=== PATIENT | female | born 1965 | race Caucasian/White ===

== ENCOUNTER 2024-04-16 00:31 | Inpatient (IN) | payer OTHER ==
[~2024-04-16] VITALS: Ht 149.9 cm; Wt 72.6 kg
[2024-04-16 00:33] VITALS: BP 130/80; PULSE 78; RESP 16; TEMP 97.5; O2SAT 98
[2024-04-16 02:29] LABS: BASOPHILS % (AUTO) 0.6 % (0.0-2.0); EOSINOPHILS # (AUTO) 0.2 K/uL (0-0.4); HEMATOCRIT 35.6 % (36-48); HEMOGLOBIN 12.3 g/dL (12.0-16.0); LYMPHOCYTES # (AUTO) 1.8 K/uL (2.5-16.5); LYMPHOCYTES % (AUTO) 33.5 % (20.5-51.1); MEAN CORPUSCULAR HEMOGLOBIN 30 pg (27-31); MEAN CORPUSCULAR HGB CONC 34 g/dL (33-37); MONOCYTES # (AUTO) 0.4 K/uL (0.8-1.0); MONOCYTES % (AUTO) 7.9 % (1.7-9.3); NEUTROPHILS # (AUTO) 2.9 K/uL (1.8-7.7); PLATELET COUNT (AUTO) 176 K/uL (140-450); RED BLOOD CELL COUNT(AUTO) 4.14 MIL/uL (4.20-5.40); RED CELL DISTRIBUTION WIDTH 14.1 % (11.6-13.7); WHITE BLOOD COUNT (AUTO) 5.3 K/uL (4.8-10.8)
[2024-04-16 02:37] LABS: ANION GAP 12.6 (8-16); CALCIUM 9.5 mg/dL (8.5-10.1); CARBON DIOXIDE 26.6 mmol/L (21-32); CREATININE 0.8 mg/dL (0.6-1.3); POTASSIUM 4.2 mmol/L (3.5-5.1)
[2024-04-16 03:17] LABS: APPEARANCE,URINE CLEAR (CLEAR); BILIRUBIN,URINE NEGATIVE (NEGATIVE); BLOOD, URINE NEGATIVE (NEGATIVE); COLOR,URINE YELLOW (YELLOW); LEUKOCYTE ESTERASE ,URINE NEGATIVE (NEGATIVE); NITRITE, URINE NEGATIVE (NEGATIVE); PROTEIN,URINE NEGATIVE (NEGATIVE); UGLUCOSE 3+ (NEGATIVE); UROBILINOGEN,URINE 0.2 EU/dL (0.2 - 1)
[2024-04-16 03:26] LABS: BACTERIA,URINE 3+ /HPF (None Seen); RBC,URINE 0-5 /HPF (0-5); SQUAMOUS EPITHELIAL CELL,UR 0-3 (FEW) /LPF (0-3 (FEW)); WBC,URINE 0-5 /HPF (0-5)
[2024-04-16] MEDS ORDERED: LORazepam 2 MG/ML VIAL ONE (03:48)
[2024-04-16] MEDS: LORazepam 2 MG/ML VIAL IM ONE (03:52)
[2024-04-16] MEDS: HALOPERIDOL IM 5 MG/ML VIAL IM ONE (03:52)
[2024-04-16] MEDS ORDERED: cefTRIAXone 1,000 MG VIAL ONE ×3 (04:14→08:02)
[2024-04-16] MEDS: NACL 0.9% 1,000 ML IV ONE (04:33)
[2024-04-16] MEDS ORDERED: DOCU-61 PO (06:28)
[2024-04-16] MEDS ORDERED: PRO1 PO (06:28)
[2024-04-16] MEDS ORDERED: BENZ-315 PO (06:28)
[2024-04-16] MEDS ORDERED: FURO-570 PO (06:28)
[2024-04-16] MEDS ORDERED: DIVA250T PO (06:28)
[2024-04-16] MEDS ORDERED: AMMO12LO TP (06:28)
[2024-04-16] MEDS ORDERED: TRAZ-471 PO (06:29)
[2024-04-16] MEDS ORDERED: POTA8TAB19 PO (06:29)
[2024-04-16] MEDS ORDERED: EMPA25TA PO (06:29)
[2024-04-16] MEDS ORDERED: LOSA-272 PO (06:29)
[2024-04-16] MEDS ORDERED: NICO21TD TP (06:29)
[2024-04-16] MEDS ORDERED: MELA5TAB68 PO (06:29)
[2024-04-16] MEDS ORDERED: METF-1139 PO (06:29)
[2024-04-16] MEDS ORDERED: GLIP10TE PO (06:29)
[2024-04-16 08:15] VITALS: PULSE 61; RESP 20; O2SAT 95
[2024-04-16] MEDS ORDERED: DEXTROSE 50% 50 ML SYR IVP PRN (10:30)
[2024-04-16] MEDS: BLOOD GLUCOSE MONITORING 1 DEV DEV FS SCH (11:40)
[2024-04-16] MEDS: BENZTROPINE 1 MG TAB PO SCH (11:41)
[2024-04-16] MEDS: amLODIPine 5 MG TAB PO SCH (11:42)
[2024-04-16] MEDS: QUEtiapine FUMARATE 25 MG TAB PO SCH (11:42)
[2024-04-16 16:00] VITALS: BP 139/80; PULSE 62; RESP 18; TEMP 98.4; O2SAT 100
[2024-04-16] MEDS: INSULIN LISPRO SLIDING SCALE 100 UNITS/ML VIAL SUBQ PRN (17:08)
[2024-04-16 20:00] VITALS: BP 150/85; PULSE 68; RESP 18; TEMP 96.5; O2SAT 100
[2024-04-16] MEDS: DOCUSATE SODIUM 100 MG GELCAP PO SCH (20:27)
[2024-04-16] MEDS: LORazepam 1 MG TAB PO PRN (21:13)
[2024-04-16 22:47] VITALS: PULSE 68; RESP 18; O2SAT 100
[2024-04-17 08:00] VITALS: BP 150/96; PULSE 66; RESP 18; TEMP 97.6; O2SAT 99
[2024-04-17] MEDS: FUROSEMIDE 40 MG TAB PO SCH (08:26)
[2024-04-17] MEDS: LOSARTAN 50 MG TAB PO SCH (08:28)
[2024-04-17] MEDS: NICOTINE TRANSD SYS 21 MG/24 HR PATCH TD SCH (08:28)
[2024-04-17] MEDS ORDERED: HALOPERIDOL IM 5 MG/ML VIAL IM PRN (09:25)
[2024-04-17 16:00] VITALS: BP 139/94; PULSE 89; RESP 18; TEMP 97.9; O2SAT 95
[2024-04-17 20:00] VITALS: PULSE 107; RESP 19; O2SAT 99
[2024-04-18] VITALS: BP 137/95; PULSE 107; RESP 17; TEMP 96.9; O2SAT 99
[2024-04-18 08:00] VITALS: BP 125/68; PULSE 105; RESP 17; TEMP 97.8; O2SAT 99
[2024-04-18 08:02] LABS: BASOPHILS % (AUTO) 0.4 % (0.0-2.0); EOSINOPHILS # (AUTO) 0.1 K/uL (0-0.4); EOSINOPHILS % (AUTO) 1.2 % (0.0-4.0); HEMATOCRIT 36.2 % (36-48); HEMOGLOBIN 12.4 g/dL (12.0-16.0); LYMPHOCYTES # (AUTO) 1.7 K/uL (2.5-16.5); MEAN CORPUSCULAR HEMOGLOBIN 30 pg (27-31); MEAN CORPUSCULAR HGB CONC 34 g/dL (33-37); MEAN CORPUSCULAR VOLUME 86.3 fL (80-94); MONOCYTES # (AUTO) 0.9 K/uL (0.8-1.0); MONOCYTES % (AUTO) 12.5 % (1.7-9.3); NEUTROPHILS # (AUTO) 4.6 K/uL (1.8-7.7); NEUTROPHILS % (AUTO) 62.9 % (42.2-75.2); PLATELET COUNT (AUTO) 177 K/uL (140-450); RED BLOOD CELL COUNT(AUTO) 4.19 MIL/uL (4.20-5.40); RED CELL DISTRIBUTION WIDTH 13.9 % (11.6-13.7); WHITE BLOOD COUNT (AUTO) 7.3 K/uL (4.8-10.8)
[2024-04-18 08:14] VITALS: PULSE 99; RESP 20; O2SAT 98
[2024-04-18 08:37] LABS: ANION GAP 15.2 (8-16); CALCIUM 9.8 mg/dL (8.5-10.1); CARBON DIOXIDE 28.1 mmol/L (21-32); POTASSIUM 4.3 mmol/L (3.5-5.1)
[2024-04-18] MEDS ORDERED: LEVO-481 PO (09:51)
[2024-04-18 11:48] VITALS: BP 125/68; PULSE 68; RESP 20; TEMP 97.2
== END 2024-04-18 13:35 | DRG 689 ==
LOC: MED 00:31 → MTU 05:59 → MMU 07:10
PROVIDERS: ADMIT Student in an Organized Health Care Education/Training Program; ATTEND Student in an Organized Health Care Education/Training Program
DX: N30.00 Acute cystitis without hematuria (principal); G93.41 Metabolic encephalopathy; E11.9 Type 2 diabetes mellitus without complications; Z79.899 Other long term (current) drug therapy
CPT/HCPCS: 36415; 71045; 80048; 81001; 82140; 82948; 83605; 85025; 87040; 87081; 87086; 96372; 99285; J0696; J1630; J2060; J7060

== ENCOUNTER 2024-04-20 21:59 | Emergency (ER) | payer OTHER ==
[~2024-04-20] VITALS: Ht 162.6 cm; Wt 60.8 kg
[~2024-04-20 21:59] MED LIST: AMMO12LO TP; BENZ-315 PO; DIVA250T PO; DOCU-61 PO; EMPA25TA PO; FURO-570 PO; GLIP10TE PO; LEVO-481 PO; LOSA-272 PO; MELA5TAB68 PO; METF-1139 PO; NICO21TD TP; POTA8TAB19 PO; PRO1 PO; TRAZ-471 PO
[2024-04-20 22:04] VITALS: BP 139/84; PULSE 71; RESP 16; TEMP 97.3; O2SAT 99
[2024-04-20 22:40] VITALS: BP 117/64; PULSE 78; RESP 12; TEMP 97.7; O2SAT 96
== END 2024-04-20 22:40 | disposition home or self-care (01) ==
LOC: MED 21:59
DX: M54.2 Cervicalgia (principal); I10 Essential (primary) hypertension; E11.9 Type 2 diabetes mellitus without complications; F03.90 Unspecified dementia, unspecified severity, without behavioral disturbance, psychotic disturbance, mood disturbance, and anxiety; Z79.84 Long term (current) use of oral hypoglycemic drugs; Z79.1 Long term (current) use of non-steroidal anti-inflammatories (NSAID); Z79.2 Long term (current) use of antibiotics; Z79.899 Other long term (current) drug therapy
CPT/HCPCS: 99283

== ENCOUNTER 2024-04-22 04:22 | Emergency (ER) | payer OTHER ==
[~2024-04-22] VITALS: Ht 167.6 cm; Wt 65.8 kg
[2024-04-22] VITALS (8 sets, daily range): BP systolic 115–141; BP diastolic 63–85; PULSE 65–96; RESP 16–18; TEMP 97.3–97.8; O2SAT 97–98
[2024-04-22] MEDS: HALOPERIDOL IM 5 MG/ML VIAL IM ONE (06:43)
[2024-04-22] MEDS: LORazepam 2 MG/ML VIAL IM ONE (06:43)
[2024-04-22 09:49] LABS: APPEARANCE,URINE CLEAR (CLEAR); BILIRUBIN,URINE NEGATIVE (NEGATIVE); BLOOD, URINE NEGATIVE (NEGATIVE); COLOR,URINE YELLOW (YELLOW); LEUKOCYTE ESTERASE ,URINE NEGATIVE (NEGATIVE); NITRITE, URINE NEGATIVE (NEGATIVE); PROTEIN,URINE NEGATIVE (NEGATIVE); UGLUCOSE 3+ (NEGATIVE)
[2024-04-22 09:52] LABS: BASOPHILS % (AUTO) 0.5 % (0.0-2.0); EOSINOPHILS # (AUTO) 0.1 K/uL (0-0.4); EOSINOPHILS % (AUTO) 1.6 % (0.0-4.0); HEMATOCRIT 31.5 % (36-48); LYMPHOCYTES # (AUTO) 1.4 K/uL (2.5-16.5); LYMPHOCYTES % (AUTO) 29.9 % (20.5-51.1); MEAN CORPUSCULAR HEMOGLOBIN 30 pg (27-31); MEAN CORPUSCULAR HGB CONC 35 g/dL (33-37); MEAN CORPUSCULAR VOLUME 85.5 fL (80-94); MONOCYTES # (AUTO) 0.4 K/uL (0.8-1.0); MONOCYTES % (AUTO) 9.6 % (1.7-9.3); NEUTROPHILS # (AUTO) 2.7 K/uL (1.8-7.7); NEUTROPHILS % (AUTO) 58.4 % (42.2-75.2); PLATELET COUNT (AUTO) 172 K/uL (140-450); RED BLOOD CELL COUNT(AUTO) 3.69 MIL/uL (4.20-5.40); RED CELL DISTRIBUTION WIDTH 13.4 % (11.6-13.7); WHITE BLOOD COUNT (AUTO) 4.6 K/uL (4.8-10.8)
[2024-04-22 09:59] LABS: AMPHETAMINE, URINE NEGATIVE ng/ml (NEG <=1000); BARBITURATE, URINE NEGATIVE ng/ml (NEG <=200)
[2024-04-22 10:00] LABS: CANNABINOID, URINE NEGATIVE ng/mL (NEG <=50); COCAINE, URINE NEGATIVE ng/mL (NEG <=300); PHENCYCLIDINE SCREEN,URINE NEGATIVE ng/mL (NEG <=25)
[2024-04-22 10:01] LABS: BENZODIAZEPINE, URINE POSITIVE ng/mL (NEG <=200); OPIATE, URINE POSITIVE ng/mL (NEG <=2000)
[2024-04-22 10:04] LABS: CALCIUM 9.4 mg/dL (8.5-10.1); CARBON DIOXIDE 26.7 mmol/L (21-32); CREATININE 0.8 mg/dL (0.6-1.3); POTASSIUM 3.7 mmol/L (3.5-5.1)
[2024-04-22 10:08] LABS: ALCOHOL, BLOOD < 3 mg/dL (<10); CREATINE KINASE, TOTAL 267 U/L (26-192)
[2024-04-22 10:33] LABS: CKMB RELATIVE INDEX 2.9 (0.0-2.5); CREATINE KINASE MB 7.8 ng/mL (0-3.6)
== END 2024-04-22 18:55 ==
LOC: MED 04:22
DX: F20.9 Schizophrenia, unspecified (principal); F03.90 Unspecified dementia, unspecified severity, without behavioral disturbance, psychotic disturbance, mood disturbance, and anxiety; Z20.822 Contact with and (suspected) exposure to COVID-19; E11.9 Type 2 diabetes mellitus without complications; I10 Essential (primary) hypertension; Z79.84 Long term (current) use of oral hypoglycemic drugs; Z79.899 Other long term (current) drug therapy
CPT/HCPCS: 36415; 80048; 80305; 81003; 82550; 82553; 85025; 87426; 96372; 99285; G0482; J1630; J2060

== ENCOUNTER 2024-05-15 19:39 | Emergency (ER) | payer OTHER ==
[~2024-05-15] VITALS: Ht 154.9 cm; Wt 72.6 kg
[2024-05-15 19:40] VITALS: BP 126/77; PULSE 90; RESP 18; TEMP 98.4; O2SAT 98
[2024-05-15 21:06] LABS: BASOPHILS % (AUTO) 0.6 % (0.0-2.0); EOSINOPHILS # (AUTO) 0.1 K/uL (0-0.4); EOSINOPHILS % (AUTO) 2.5 % (0.0-4.0); HEMATOCRIT 33.4 % (36-48); HEMOGLOBIN 11.4 g/dL (12.0-16.0); LYMPHOCYTES # (AUTO) 1.8 K/uL (2.5-16.5); LYMPHOCYTES % (AUTO) 32.2 % (20.5-51.1); MEAN CORPUSCULAR HEMOGLOBIN 29 pg (27-31); MEAN CORPUSCULAR HGB CONC 34 g/dL (33-37); MEAN CORPUSCULAR VOLUME 85.8 fL (80-94); MONOCYTES # (AUTO) 0.5 K/uL (0.8-1.0); MONOCYTES % (AUTO) 8.9 % (1.7-9.3); NEUTROPHILS # (AUTO) 3.2 K/uL (1.8-7.7); NEUTROPHILS % (AUTO) 55.8 % (42.2-75.2); PLATELET COUNT (AUTO) 180 K/uL (140-450); RED BLOOD CELL COUNT(AUTO) 3.89 MIL/uL (4.20-5.40); RED CELL DISTRIBUTION WIDTH 13.9 % (11.6-13.7); WHITE BLOOD COUNT (AUTO) 5.7 K/uL (4.8-10.8)
[2024-05-15 21:23] LABS: ANION GAP 16.1 (8-16); CALCIUM 9.5 mg/dL (8.5-10.1); CARBON DIOXIDE 26.3 mmol/L (21-32); CREATININE 0.9 mg/dL (0.6-1.3); POTASSIUM 4.4 mmol/L (3.5-5.1)
[2024-05-15 21:29] LABS: ACETAMINOPHEN < 0.5 ug/ml (10-30); ALANINE AMINOTRANSFERASE 19 U/L (12-78); ALBUMIN 3.4 g/dL (3.4-5.0); ALCOHOL, BLOOD < 3 mg/dL (<10); ALKALINE PHOSPHATASE 77 U/L (50-136); ASPARTATE AMINOTRANSFERASE 7 U/L (15-37); SALICYLATE < 2.8 mg/dL (2.8-20.0); TOTAL BILIRUBIN 0.2 mg/dL (0.0-1.0); TOTAL PROTEIN, SERUM 6.5 g/dL (6.4-8.2)
[2024-05-15 21:30] VITALS: O2SAT 98
[2024-05-15] MEDS: OLANZapine 5 MG ODT PO SCH (23:26)
[2024-05-16 00:08] LABS: APPEARANCE,URINE CLEAR (CLEAR); BILIRUBIN,URINE NEGATIVE (NEGATIVE); BLOOD, URINE NEGATIVE (NEGATIVE); COLOR,URINE YELLOW (YELLOW); LEUKOCYTE ESTERASE ,URINE TRACE (NEGATIVE); NITRITE, URINE POSITIVE (NEGATIVE); PROTEIN,URINE NEGATIVE (NEGATIVE); UGLUCOSE 3+ (NEGATIVE); UROBILINOGEN,URINE 0.2 EU/dL (0.2 - 1)
[2024-05-16 00:18] LABS: AMPHETAMINE, URINE NEGATIVE ng/ml (NEG <=1000); BARBITURATE, URINE NEGATIVE ng/ml (NEG <=200); BENZODIAZEPINE, URINE NEGATIVE ng/mL (NEG <=200); CANNABINOID, URINE NEGATIVE ng/mL (NEG <=50); COCAINE, URINE NEGATIVE ng/mL (NEG <=300); OPIATE, URINE NEGATIVE ng/mL (NEG <=2000); PHENCYCLIDINE SCREEN,URINE NEGATIVE ng/mL (NEG <=25)
[2024-05-16 00:23] LABS: BACTERIA,URINE >30 (MANY) /HPF (None Seen); MUCUS,URINE 1+ /LPF (None Seen); RBC,URINE 0-5 /HPF (0-5); SQUAMOUS EPITHELIAL CELL,UR 4-10 (MOD) /LPF (0-3 (FEW))
[2024-05-16] MEDS ORDERED: CEPH-588 PO (01:14)
[2024-05-16] MEDS ORDERED: cefTRIAXone 1,000 MG VIAL ONE (02:32)
[2024-05-16 07:13] VITALS: O2SAT 98
[2024-05-16 09:00] VITALS: O2SAT 98
[2024-05-16 14:26] VITALS: BP 110/77; PULSE 60; RESP 18; TEMP 97; O2SAT 98
== END 2024-05-16 14:26 ==
LOC: MED 19:39
DX: F29 Unspecified psychosis not due to a substance or known physiological condition (principal); F25.9 Schizoaffective disorder, unspecified; Z20.822 Contact with and (suspected) exposure to COVID-19; F03.90 Unspecified dementia, unspecified severity, without behavioral disturbance, psychotic disturbance, mood disturbance, and anxiety; F32.9 Major depressive disorder, single episode, unspecified; Z79.899 Other long term (current) drug therapy
CPT/HCPCS: 36415; 80048; 80076; 80305; 81001; 85025; 87086; 87426; 96365; 99285; G0480; G0482; J0696